=== PATIENT | female | born 1955 | race Caucasian/White ===

== ENCOUNTER → 2017-01-22 | Outpatient (CLI) | payer BC ==
[2017-01-22 09:44] LABS: BASO % 0.5 %; BASO ABS # 0.04 K/uL (0-0.2); COMPLETE YES; EOS % 2.9 %; HEMATOCRIT 43.4 % (37-47); IG% 0.7 %; LYMPH % 21.2 %; LYMPH ABS # 1.61 K/uL (1.2-3.4); MEAN CELL VOLUME 92.5 fL (80-100); MEAN CORPUSCULAR HEMOGLOBIN 31.3 pg (25-34); MEAN CORPUSCULAR HGB CONC 33.9 g/dl (32-36); MEAN PLATELET VOLUME 10.7 fL (7.4-10.4); MONO % 10.9 %; NEUT % 63.8 %; PLATELET COUNT 258 K/uL (130-400); RED BLOOD COUNT 4.69 M/uL (4.2-5.4); WHITE BLOOD COUNT 7.58 K/uL (4.8-10.8)
[2017-01-22 10:06] LABS: ESTIMATED AVERAGE GLUCOSE 117 mg/dl; HA1C FLAG Normal (Normal)
== END ==
LOC: C.LAB1850 07:47
PROVIDERS: ATTEND Internal Medicine
DX: M85.80 Other specified disorders of bone density and structure, unspecified site (principal); D64.9 Anemia, unspecified; R73.03 Prediabetes

== ENCOUNTER → 2017-04-02 | Outpatient (CLI) | payer BC ==
--- NOTE | 2017-04-03 13:05 | MAMMOGRAPHY REPORT ---
BILATERAL DIGITAL SCREENING MAMMOGRAM TOMOSYNTHESIS WITH CAD: 04/02/2017 CLINICAL HISTORY: Routine screening. Patient has no complaints. TECHNIQUE: Breast tomosynthesis in addition to standard 2D mammography was performed. Current study was also evaluated with a Computer Aided Detection (CAD) system. COMPARISON: Comparison is made to exams dated: 03/30/2016 mammogram, 03/28/2015 mammogram, 03/26/2014 m ammogram, 03/23/2013 mammogram, 03/22/2012 mammogram, and 03/21/2011 mammogram. BREAST COMPOSITION: The tissue of both breasts is almost entirely fatty. FINDINGS: There are scattered benign coarse calcifications in the breasts. No suspicious mass, focal area of architectural distortion or cluster of suspicious microcalcifications is seen. IMPRESSION: ACR BI-RADS CATEGORY 1: NEGATIVE There is no mammographic evidence of malignancy. A 1 year screening mammogram is recommended. The pa tient will receive written notification of the results. Approximately 10% of breast cancers are not detected with mammography. A negative mammographic report should not delay biopsy if a clinically suggestive mass is present. Sheila Sheffield M.D. ay/:04/02/2017 15:43:53 Mold Worker: Chelly HOFFMANN)(M), [facility] letter sent: Normal 1/2 BI-RADS Code: ACR BI-RADS Category 1: Negative
== END | disposition home or self-care (01) ==
LOC: C.MAMM 08:35
PROVIDERS: ATTEND Obstetrics & Gynecology
DX: Z12.31 Encounter for screening mammogram for malignant neoplasm of breast (principal)

== ENCOUNTER → 2017-07-17 | Outpatient (CLI) | payer BC ==
[2017-07-17 10:13] LABS: BASO ABS # 0.08 K/uL (0-0.2); COMPLETE YES; EOS % 2.7 %; HEMATOCRIT 45.3 % (37-47); IG% 0.7 %; LYMPH % 19.8 %; LYMPH ABS # 1.61 K/uL (1.2-3.4); MEAN CORPUSCULAR HEMOGLOBIN 31.2 pg (25-34); MEAN CORPUSCULAR HGB CONC 33.6 g/dl (32-36); MEAN PLATELET VOLUME 10.8 fL (7.4-10.4); MONO % 10.8 %; PLATELET COUNT 239 K/uL (130-400); RED BLOOD COUNT 4.87 M/uL (4.2-5.4); WHITE BLOOD COUNT 8.14 K/uL (4.8-10.8)
[2017-07-17 10:43] LABS: BLOOD UREA NITROGEN 19 mg/dl (7-18); BUN/CREATININE RATIO 23.4 (10-20); CALCIUM 10.1 mg/dl (8.5-10.1); CARBON DIOXIDE 29 mmol/L (21-32); CHLORIDE 106 mmol/L (98-107); CHOLESTEROL 158 mg/dl (0-200); CREATININE 0.83 mg/dl (0.60-1.20); GLUCOSE 105 mg/dl (70-99); POTASSIUM 4.8 mmol/L (3.5-5.1); SODIUM 138 mmol/L (136-145); TRIGLYCERIDES 94 mg/dl (0-150); VERY LOW DENSITY LIPOPROT CALC 19 mg/dl
[2017-07-17 10:47] LABS: CHOLESTEROL/HDL RATIO 2.2; FERRITIN 53.6 ng/ml (8.0-388.0); HDL CHOLESTEROL 73 mg/dl; LDL CHOLESTEROL CALCULATED 66 mg/dl; TOTAL IRON BINDING CAPACITY 367 mcg/dl (250-450)
[2017-07-17 10:57] LABS: ESTIMATED AVERAGE GLUCOSE 123 mg/dl; HA1C FLAG Normal (Normal)
== END | disposition home or self-care (01) ==
LOC: C.LAB1850 08:55
PROVIDERS: ATTEND Internal Medicine
DX: D64.9 Anemia, unspecified (principal); R73.03 Prediabetes

== ENCOUNTER → 2018-01-14 | Outpatient (CLI) | payer BC ==
[2018-01-14 09:41] LABS: HEMATOCRIT 45.7 % (37-47); HEMOGLOBIN 15.6 g/dL (12.0-16.0); MEAN CELL VOLUME 92.1 fL (80-100); MEAN CORPUSCULAR HEMOGLOBIN 31.5 pg (25-34); MEAN CORPUSCULAR HGB CONC 34.1 g/dl (32-36); MEAN PLATELET VOLUME 10.9 fL (7.4-10.4); PLATELET COUNT 265 K/uL (130-400); RED CELL DISTRIBUTION WIDTH CV 14.3 % (11.5-14.5); RED CELL DISTRIBUTION WIDTH SD 48.1 fL (36.4-46.3); WHITE BLOOD COUNT 9.01 K/uL (4.8-10.8)
[2018-01-14 09:52] LABS: BLOOD UREA NITROGEN 16 mg/dl (7-18); CALCIUM 9.7 mg/dl (8.5-10.1); CARBON DIOXIDE 27 mmol/L (21-32); CREATININE 0.96 mg/dl (0.60-1.20); GLUCOSE 105 mg/dl (70-99); HEMOGLOBIN A1C 5.8 % (4.5-5.6); SODIUM 139 mmol/L (136-145)
[2018-01-14 09:57] LABS: CHOLESTEROL 151 mg/dl (0-200); LDL CHOLESTEROL CALCULATED 51 mg/dl; TRANSFERRIN 279 mg/dl (200-360)
== END | disposition home or self-care (01) ==
LOC: C.LAB1850 08:35
PROVIDERS: ATTEND Internal Medicine
DX: D64.9 Anemia, unspecified (principal); R73.03 Prediabetes; M85.80 Other specified disorders of bone density and structure, unspecified site

== ENCOUNTER → 2018-02-06 | Day surgery (SDC) | payer BC ==
[2018-01-30 14:36] VITALS: Ht 157.5 cm; Wt 103.2 kg
[~2018-02-06] VITALS: Ht 157.5 cm; Wt 103.2 kg
[~2018-02-06] MED LIST: ALBU18002 PO; CHOL2000 PO; FERR1TAB13 PO; LIDOCAINE HCL 2% 2 ML VIAL (20MG/ML) ONE; LOSA50TA6 PO; PROPOFOL IV EMULSION 10 MG/ML 20 ML VIAL ONE; SUCR1TAB PO; TPRSR50 PO
[2018-02-06 13:08] VITALS: TEMP 36.8
--- NOTE | 2018-02-06 13:47 | Endo History and Physical ---
History & Physical Date of Service: February 06, 2018. Chief Complaint: history of polyps Referring Physician: Dr. Lopez History of Present Illness For colonoscopy Past Surgical History Hx Cardiac Surgery: No Hx Internal Defibrillator: No Hx Pacemaker: No Hx Abdominal Surgery: Yes (KANG 2004, TUBAL, SANDRA 1993) Hx of Implantable Prosthesis: No Hx Cancer Surgery: No Hx Thoracic Surgery: No Hx Orthopedic: No Hx Urinary Tract Surgery: No Family History Colon CA Social History Smoking Status: Never Smoker Hx Substance Use: No Hx Alcohol Use: Yes (OCCASIONALLY) Allergies Coded Allergies: Meperidine (Verified Allergy, Mild, GI symtoms, 02/06/18) Current Medications Reported Home Medications Medications Dose Route/Sig Max Daily Dose Days Date Category Vitamin D3 (Cholecalciferol) 2,000 Unit Cap 2 Cap PO DAILY 30 01/30/18 Reported Sucralfate 1 Gm Tab 1 Gm PO QID 01/30/18 Reported Proair Respiclick (Albuterol Sulfate) 108 Mcg/Act Aer 1-2 Puffs PO Q4 PRN 01/30/18 Reported Metoprolol Succinate ER (Metoprolol Succinate) 50 Mg Tabcr 1 Tab PO BID 01/30/18 Reported Cozaar (Losartan Potassium) 50 Mg Tab 1 Tab PO DAILY 30 01/30/18 Reported Kp Ferrous Sulfate (Ferrous Sulfate) 325 Mg Tab 1 Tab PO TID 30 01/30/18 Reported Vital Signs Weight (Kilograms): 103.18 Height (Feet): 5 Height (Inches): 2 Date Time Temp Pulse Resp B/P (MAP) Pulse Ox O2 Delivery O2 Flow Rate FiO2 02/06/18 13:08 36.8 103 20 158/106 (123) 96 Room Air Physical Exam General Appearance: WD/WN Respiratory/Chest: Respiratory effort: no dyspnea Cardiovascular: Heart Auscultation: RRR Abdomen: Inspection & Palpation: soft Assessment and Plan Hx polyps for colonoscopy
--- NOTE | 2018-02-06 14:11 | Discharge Instructions ---
Endoscopy Patient Instructions Date / Procedure(s) Performed February 06, 2018. Colonoscopy Allergy Information Coded Allergies: Meperidine (Verified Allergy, Mild, GI symtoms, 02/06/18) Discharge Date / Findings February 06, 2018. Diverticulosis, hemorrhoids Medication Instructions Stopped Medication(s): last dose iron week ago Restart Stopped Medication(s): resume meds Reported Home Medications Medications Dose Route/Sig Max Daily Dose Days Date Category Vitamin D3 (Cholecalciferol) 2,000 Unit Cap 2 Cap PO DAILY 30 01/30/18 Reported Sucralfate 1 Gm Tab 1 Gm PO QID 01/30/18 Reported Proair Respiclick (Albuterol Sulfate) 108 Mcg/Act Aer 1-2 Puffs PO Q4 PRN 01/30/18 Reported Metoprolol Succinate ER (Metoprolol Succinate) 50 Mg Tabcr 1 Tab PO BID 01/30/18 Reported Cozaar (Losartan Potassium) 50 Mg Tab 1 Tab PO DAILY 30 01/30/18 Reported Kp Ferrous Sulfate (Ferrous Sulfate) 325 Mg Tab 1 Tab PO TID 30 01/30/18 Reported Provider Instructions Activity Restrictions - No exercising or heavy lifting for 24 hours. - Do not drink alcohol the day of the procedure. - Do not drive a car or operate machinery until the day after the procedure. - Do not make any important decisions or sign important papers in 24 hours after the procedure. Following Day: - Return to full activity which may include returning to work/school. Diet Start your diet with liquids and light foods (jello, soup, juice, toast). Then eat your usual diet if not nauseated. Treatment For Common After Affects For mild abdominal pain, bloating, or excessive gas: - Rest - Eat lightly - Lie on right side Follow-Up Information Follow-up with Dr. Lopez as scheduled Anesthesia Information What You Should Know You have had a procedure that required some medicine to reduce anxiety and discomfort. This treatment is called moderate sedation. After receiving the treatment, you may be sleepy, but you will be able to breathe on your own. The effects of the treatment may last for several hours. Follow these instructions along with Activity/Diet recommendations noted above: * Do NOT do anything where dizziness or clumsiness would be dangerous. * Rest quietly at home today, then you can be up and about tomorrow. * Have a responsible person stay with you the rest of today. * You may have had an I.V. today. If so, you may take the dressing off later today. Recommendations Call your doctor if: * Trouble breathing * Continuous vomiting for more than 24 hours * Temperature above 101 degrees * Severe abdominal pain or bloating * Pain not relieved by pain medicine ordered * There is increased drainage or redness from any incision * A large amount of rectal bleeding greater than 2-3 tablespoons. (If you had a polyp/s removed or have hemorrhoids, a small amount of blood - from the rectum is to be expected.) * You have any unanswered questions or concerns. IN THE EVENT OF A SERIOUS EMERGENCY, GO TO THE NEAREST EMERGENCY ROOM Your discharge instructions were prepared by provider Ryan More. Patient Instructions Signature Page Katie Huston Patient (or Guardian) Signature/Date: I have read and understand the instructions given to me by my caregivers. Caregiver/RN/Doctor Signature/Date: The above-named patient and/or guardian has received patient instructions on this date. + Original Patient Signature Page (only) stays with chart. Please make copy for patient.
--- NOTE | 2018-02-06 14:18 | GI REPORT ---
Patient Name: Katie Huston Procedure Date: 02/06/2018 1:48 PM Date of : 1955 Admit Type: Outpatient Age: 62 Gender: Female Attending MD: Ryan More MD Procedure: Colonoscopy Providers: Ryan More MD Referring MD: Dev Lopez Indications: Personal history of colonic polyps Medicines: Propofol total dose 300 mg IV, Lidocaine 40 mg IV Complications: No immediate complications. Estimated Blood Loss: Estimated blood loss: none. Procedure: Pre-Anesthesia Assessment: - Prior to the procedure, a History and Physical was performed, and patient medications, allergies and sensitivities were reviewed. The patient's tolerance of previous anesthesia was reviewed. - The risks and benefits of the procedure and the sedation options and risks were discussed with the patient. All questions were answered and informed consent was obtained. After I obtained informed consent, the scope was passed under direct vision. Throughout the procedure, the patient's blood pressure, pulse, and oxygen saturations were monitored continuously. The scope was introduced through the mouth, and advanced to the cecum, identified by appendiceal orifice and ileocecal valve. After I obtained informed consent, the scope was passed under direct vision. Throughout the procedure, the patient's blood pressure, pulse, and oxygen saturations were monitored continuously. The colonoscopy was performed without difficulty. The patient tolerated the procedure well. The quality of the bowel preparation was good. Findings: Non-bleeding internal hemorrhoids were found during endoscopy. The hemorrhoids were mild. Multiple diverticula were found in the sigmoid colon and transverse colon. Impression: - Non-bleeding internal hemorrhoids. - Diverticulosis in the sigmoid colon and in the transverse colon. - No specimens collected. Recommendation: - Discharge patient to home (ambulatory). - Continue present medications. - Repeat colonoscopy in 5 years for surveillance. - Return to primary care physician PRN. Ryan More M.D. Ryan More MD 02/06/2018 2:18:20 PM This report has been signed electronically. Note Initiated On: 02/06/2018 1:48 PM Number of Addenda: 0 I attest to the content of the Intraoperative Record and orders documented therein, exceptions below {[id number]}
[2018-02-06 14:43] VITALS: BP 143/89; PULSE 76; O2SAT 97
--- NOTE | 2018-02-06 14:49 | Anesthesiology Progress Note ---
Anesthesia Post Op Note Date & Time February 06, 2018 at 14:49 Vital Signs Pain Intensity: 0 Vital Signs Past 12 Hours Date Time Temp Pulse Resp B/P (MAP) Pulse Ox O2 Delivery O2 Flow Rate FiO2 02/06/18 14:43 76 20 143/89 (107) 97 Room Air 02/06/18 14:33 76 20 131/97 (108) 95 Room Air 02/06/18 14:25 87 20 123/73 (90) 93 Room Air 02/06/18 14:19 86 20 115/84 (94) 93 Room Air 02/06/18 13:08 36.8 103 20 158/106 (123) 96 Room Air Notes Mental Status: alert / awake / arousable, participated in evaluation Pt Amnestic to Procedure: Yes Nausea / Vomiting: adequately controlled Pain: adequately controlled Airway Patency, RR, SpO2: stable & adequate BP & HR: stable & adequate Hydration State: stable & adequate Anesthetic Complications: no major complications apparent
== END | disposition home or self-care (01) ==
LOC: C.GI 12:47
PROVIDERS: ATTEND Internal Medicine Gastroenterology
DX: Z86.010 Personal history of colon polyps (principal); K64.8 Other hemorrhoids; K57.30 Diverticulosis of large intestine without perforation or abscess without bleeding; Z68.41 Body mass index [BMI] 40.0-44.9, adult; E66.9 Obesity, unspecified; I10 Essential (primary) hypertension; J45.909 Unspecified asthma, uncomplicated; D68.51 Activated protein C resistance; Z90.89 Acquired absence of other organs; Z90.49 Acquired absence of other specified parts of digestive tract; Z79.899 Other long term (current) drug therapy; Z80.0 Family history of malignant neoplasm of digestive organs